=== PATIENT | male | born 1975 | race Two or more races ===

== ENCOUNTER 2017-11-07 16:08 | Emergency (ER) | payer MEDICAID ==
[~2017-11-07] VITALS: Ht 170.2 cm; Wt 95.3 kg
[~2017-11-07 16:08] MED LIST: AZITHROMYCIN250 MG ORAL; CHERATUSSIN AC118 ML PO; FLONASE1 SPRAYS NASAL; TENORMIN50 MG ORAL; XANAX0.25 MG ORAL
[2017-11-07 16:58] VITALS: BP 111/66
[2017-11-07] MEDS ORDERED: PSEUDOEPHEDRINE30 MG PO (17:00)
[2017-11-07] MEDS ORDERED: ZITHROMAX250 MG ORAL (17:00)
--- NOTE | 2017-11-07 17:00 | Emergency Room Report ---
History of Present Illness General Chief Complaint: Earache Source: Patient Present Illness HPI 42 yo male patient presents to ER complaining of ear pain and congestion. Reports ear pain began last night; complains of ear drainage earlier today; denies blood. Reports ear symptoms occur after coughing and congestion symptoms begin. Reports taking Mucinex and Fluticasone nose spray for a few days. Reports hx of smoking. Reports hx of ear infections; has not seen ENT specialist. Denies ringing in ear, vision changes, dizziness, vertigo. Denies fever, chest pain, SOB. Allergies: Coded Allergies: No Known Allergies (Unverified , 02/02/15) Patient History Past Medical History: see triage record Reviewed Nursing Documentation: PMH: Agreed, PSxH: Agreed Nursing Documentation-PMH Past Medical History: No History, Except For Hx Hypertension: Yes Review of Systems All Other Systems: negative except mentioned in HPI Physical Exam Vital Signs Date Time Temp Pulse Resp B/P (MAP) Pulse Ox O2 Delivery O2 Flow Rate FiO2 11/07/17 16:36 98.6 61 16 108/64 96 Room Air 98.6 Sp02 EP Interpretation: reviewed, normal General Appearance: well appearing, no apparent distress, alert, GCS 15 Head: normocephalic, atraumatic, other - no erythema, edema or TTP of mastoid process bilaterally Eyes: bilateral eye normal inspection, bilateral eye PERRL ENT: hearing grossly normal, normal pharynx, no angioedema, normal voice, TMs + canals normal - right ear normal, uvula midline, moist mucus membranes, nasal congestion, other - left ear: erythematous TM, no drainage, no ruptured TM, no light reflex, canal clear, no pain with ear pulling Neck: full range of motion Respiratory: lungs clear, normal breath sounds, no rhonchi, no respiratory distress, no accessory muscle use, no wheezing, speaking full sentences Cardiovascular #1: regular rate, rhythm, no edema Gastrointestinal: non tender, soft, no mass, non-distended, no guarding, no rebound Genitourinary: no CVA tenderness Musculoskeletal: back normal, digits/nails normal, gait/station normal, normal range of motion, non-tender Neurologic: alert, oriented x3, responsive, motor strength/tone normal, sensory intact Psychiatric: mood/affect normal Skin: no rash Lymphatic: no adenopathy Medical Decision Making PA Attestation Dr. Heredia is my supervising Physician whom patient management has been discussed with. Diagnostic Impression: Primary Impression: Otitis media Additional Impression: Nasal congestion ER Course Pt presents to ED c/o cough and flu-like symptoms. DDX considered but are not limited to influenza, viral URI, strep throat, rhinitis, sinusitis, otitis media. VITAL SIGNS are WNL, patient is afebrile. ORDERS: none required at this time, diagnosis is clinical ED COURSE: PE shows TM erythema, dull light reflex in right ear, no ruptured TM, ear canal nonerythematous, no drainage, mild cerumen, no FB. Nasal congestion present, no epistaxis, no foul smell. Instructed patient will treat congestion and otitis media. Patient instructed to stop smoking. DISCHARGE: -Rx provided for Azithromycin Use as directed. -Rx provided for Sudafed for congestion. Take Tylenol and OTC medications for symptom relief; use as directed. Does not need Rx at this time. Do not take Fluticasone nasal spray at home for longer than 3 days, will cause rhinitis medicamentosa. P At this time pt is stable for d/c to home. Patient is resting comfortably, in no acute distress, nontoxic appearing, talking and smiling. Patient to take medications as instructed Will provide with patient care instructions and any necessary prescriptions. Care plan and follow-up instructions provided. Patient instructed to follow-up with primary care provider in 3 - 5 days and discuss ENT referral. Patient reports understanding and agreement to treatment plan. Patient questions asked and answered. ER precautions given. Patient instructed to return to ER immediately for any new or worsening of symptoms including but not limited to increasing SOB, persistent fever. Last Vital Signs Date Time Temp Pulse Resp B/P (MAP) Pulse Ox O2 Delivery O2 Flow Rate FiO2 11/07/17 16:36 98.6 61 16 108/64 96 Room Air 98.6 Disposition: HOME, SELF-CARE Condition: Stable Scripts Azithromycin* (ZITHROMAX*) 250 Mg Tablet 250 MG ORAL da, #6 TAB 0 Refills Take two tables once daily for 1 day, then one tablet once daily for 4 days. Prov: Kevin Villa.Halle 11/07/17 Pseudoephedrine Hcl* (SUDAFED*) 30 Mg Tablet 30 MG PO Q6H for 5 Days, #20 TAB Prov: Kevin Villa 11/07/17 Patient Instructions: Allergic Rhinitis, Otitis Media, Adult, [id number] Additional Instructions: Followup with primary care provider in 3 -5 days. Followup with ENT specialist. Smoking cigarettes is bad for cough symptoms. Take medications as directed. Do not take Fluticasone longer than 3 days. Patient questions asked and answered. ER precautions given, patient instructed to return to ER immediately for any new or worsening of symptoms. Kevin Villa Nov 07, 2017 17:00
[2017-11-07 17:20] VITALS: BP 111/66
== END 2017-11-07 17:30 | disposition home or self-care (01) ==
LOC: EMR 17:30
DX: H66.92 Otitis media, unspecified, left ear (principal); R09.81 Nasal congestion; I10 Essential (primary) hypertension
CPT/HCPCS: 99283